=== PATIENT | male | born 1950 | race Caucasian/White ===

== ENCOUNTER 2020-11-11 03:19 | Emergency (ER) | payer MEDICARE ==
[~2020-11-11] VITALS: Ht 167.6 cm; Wt 91.2 kg
[2020-11-11 03:34] VITALS: BP 139/79
[2020-11-11] MEDS ORDERED: BUPIVACAINE 0.25% ONE (03:38)
[2020-11-11] MEDS ORDERED: LIDOCAINE-MPF 1%, 2ML ONE (03:38)
[2020-11-11] MEDS ORDERED: PENICILLIN VK 500MG TABLET ONE (03:41)
[2020-11-11] MEDS ORDERED: LIDOCAINE 1%, 2ML INFIL ONE (04:00)
[2020-11-11] MEDS ORDERED: PLEASE ENTER ALLERGIES MC SCH (04:00)
[2020-11-11] MEDS ORDERED: BUPIVACAINE 0.25% INFIL ONE (04:00)
[2020-11-11] MEDS ORDERED: PENICILLIN VK 500MG TABLET PO SCH (06:00)
== END 2020-11-11 05:07 | disposition home or self-care (01) ==
LOC: ED 04:00
DX: K02.9 Dental caries, unspecified (principal); K08.89 Other specified disorders of teeth and supporting structures; I10 Essential (primary) hypertension
CPT/HCPCS: 64400; 99284; J3490